=== PATIENT | male | born 1980 | race Caucasian/White ===

== ENCOUNTER 2023-03-24 03:52 | Emergency (ER) | payer SELFPAY ==
[2023-03-24 03:58] VITALS: BP 145/79; PULSE 57; RESP 16; O2SAT 97; BMI 24.3
--- NOTE | 2023-03-24 04:10 | XRR_ITS ---
PROCEDURE INFORMATION: Exam: XR Right Tibia and Fibula Exam date and time: 03/24/2023 4:14 AM Age: 42 years old Clinical indication: Swelling, leg or foot; Patient HX: Patient states he feel a knot/lump on medial side of calf. ; Additional info: Possible fb medial calf region TECHNIQUE: Imaging protocol: Radiologic exam of the right tibia and fibula. Views: 2 views. COMPARISON: No relevant prior studies available. FINDINGS: Bones/joints: No acute fracture or malalignment. Soft tissues: No radiopaque foreign bodies are seen. XR/XR tibia fibula RT 2V [id number] IMPRESSION: No acute fracture or malalignment. No radiopaque foreign bodies are seen.
--- NOTE | 2023-03-24 04:10 | XRR_ITS ---
PROCEDURE INFORMATION: Exam: XR Lumbosacral Spine Exam date and time: 03/24/2023 4:14 AM Age: 42 years old Clinical indication: Patient HX: C/O low back pain. History of l4-l5 degenerative changes. ; Additional info: Acute low back pain TECHNIQUE: Imaging protocol: Radiologic exam of the lumbosacral spine. Views: 2 or 3 views. COMPARISON: No relevant prior studies available. 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 Vertebral body heights are maintained. Moderate degenerative disc disease at L4-L5 and L5-S1. Soft tissues: Unremarkable. XR/XR lumbar spine 2-3V* [id number] IMPRESSION: 1. 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 2. Vertebral body heights are maintained. 3. Moderate degenerative disc disease at L4-L5 and L5-S1.
--- NOTE | 2023-03-24 04:11 | ED_ITS ---
HPI - Back Pain/Injury General: Chief Complaint: Back Pain/Injury Stated Complaint: Back pain, knee pain Time Seen by Provider: 03/24/23 03:54 History of Present Illness: Patient presents to the ER with complaints of low back pain x1 day. And a possible foreign body in his right mid calf region. Patient hurt his lower back today while he was out working in the yard. Patient thinks he may have hit something with his lawnmower and it may have shot into his right lower lobe medial calf region. Review of Systems General: Reports: 10 or more systems reviewed and unremarkable except in HPI and below Physical Exam Const: COMMON NORMALS: no acute distress, average body habitus, patient oriented x3, no limitations, healthy appearing, alert and well nourished HENMT: COMMON NORMALS: normocephalic, atraumatic, hearing grossly normal bilaterally, external ears normal, Normal external nose present and moist oral mucous membranes HEAD & SCALP: normocephalic and atraumatic NOSE: Normal external nose present EXTERNAL EAR: Yes external ears normal Eye: COMMON NORMALS: Equal, round and reactive pupils present, EOMs intact bilaterally, conjunctivae normal and no scleral icterus CONJUNCTIVA: Yes conjunctivae normal PUPIL: Yes Equal, round and reactive pupils present Neck/C-Spine: COMMON NORMALS: no JVD Resp: COMMON NORMALS: normal respiratory effort, No retractions and No use of accessory muscles Cardio: COMMON NORMALS: no JVD, regular rate and regular rhythm RATE: regular rate RHYTHM: regular rhythm Back/Pelvis: OTHER: Pain in the lower lumbar back region patient points to his paraspinal musculature as the area of pain. Extremity: NARRATIVE EXTREMITY EXAM: Right lower medial calf swelling noted positive ecchymosis. Possible foreign body Neuro: COMMON NORMALS: patient oriented x3 SENSORIUM/ORIENTATION: Yes alert Course Vital Signs: Vital signs: Vital Signs Pulse Rate 57 L 03/24/23 03:58 Respiratory Rate 16 03/24/23 03:58 Blood Pressure 145/79 03/24/23 03:58 Pulse Oximetry 97 03/24/23 03:58 Oxygen Delivery Me thod Room Air 03/24/23 03:58 MDM - Back Pain/Injury Medical Decision Making Patient presents to the ER with complaints of low back pain and possible soft tissue foreign body in his right medial calf. X-rays was obtained in both these areas which were negative for any acute changes. Patient be discharged home to follow-up with his PCP in 7 days on an as-needed basis. Differential Diagnosis Likely strain of lumbar region; Unlikely lumbar radiculopathy, sciatica, renal colic, pyelonephritis, thoracic back pain, AAA or discitis Medical Records I reviewed the patient's medical records. Labs I reviewed the patient's lab results. Radiology Impressions Lumbar Spine X-Ray 03/24/23 04:10 IMPRESSION: 1. 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 2. Vertebral body heights are maintained. 3. Moderate degenerative disc disease at L4-L5 and L5-S1. Tibia/Fibula X-Ray 03/24/23 04:10 IMPRESSION: No acute fracture or malalignment. No radiopaque foreign bodies are seen. Discharge Plan Discharge Patient Disposition: Home Clinical Impression: Low back pain Qualifiers: Chronicity: acute Back pain laterality: unspecified Sciatica presence: without sciatica Qualified Code(s): M54.50 - Low back pain, unspecified Contusion of leg, right Qualifiers: Encounter type: initial encounter Qualified Code(s): S80.11XA - Contusion of right lower leg, initial encounter Condition: Stable Discharge Orders: Discharge ED (Routine); Ordered 03/24/23 Ordered By: Jose Alberto Fernandez Patient Instructions: Contusion, Acute Low Back Pain (ED) Activity Restrictions/Additional Instructions: Please follow-up with your family practice doctor in approximately 7 days or sooner as needed. Coding Level of Care Code ED Ampoule Examiner for Jacquelyn Zamora
[2023-03-24 05:07] VITALS: BP 175/105; PULSE 67; RESP 34; O2SAT 96
== END 2023-03-24 05:08 | disposition home or self-care (01) ==
PROVIDERS: Emergency Provider Emergency Medicine
DX: M54.50 Low back pain, unspecified (principal); S80.11XA Contusion of right lower leg, initial encounter; W20.8XXA Other cause of strike by thrown, projected or falling object, initial encounter
CPT/HCPCS: 72100; 73590; 99283